=== PATIENT | male | born 1985 | race Caucasian/White ===

== ENCOUNTER 2024-10-13 17:34 | Inpatient (IN) | payer BC ==
[~2024-10-13] VITALS: Ht 172.7 cm; Wt 104.3 kg
[2024-10-13 18:36] LABS: BASOPHILS % 0.7 % (0.0-2.0); DIFFERENTIAL COMMENT 0; EOSINOPHILS % 4.4 % (0.0-5.0); HEMATOCRIT. 38.7 % (42.0-52.0); HEMOGLOBIN. 13.2 g/dL (14.0-18.0); LYMPHOCYTES % 26.9 % (20.0-50.0); MEAN CORPUSCULAR HEMOGLOBIN 27.2 pg (28.0-32.0); MEAN CORPUSCULAR HGB CONC 34.1 g/dL (31.0-37.0); MEAN CORPUSCULAR VOLUME 79.7 fL (80.0-94.0); MEAN PLATELET VOLUME 10.1 fl (7.4-10.4); MONOCYTES % 8.7 % (2.0-8.0); NEUTROPHILS % 59.3 % (40.0-76.0); PLATELET 241 x1000/uL (130-400); RED BLOOD CELL COUNT 4.86 mill/uL (4.7-6.1); RED CELL DISTRIBUTION WIDTH 14.4 % (11.6-14.6); WHITE BLOOD COUNT 7.2 x1000/uL (4.5-11.0)
[2024-10-13 18:43] LABS: CHLORIDE 105 mEq/L (98-107); POTASSIUM 3.6 mEq/L (3.5-5.1); SODIUM 139 mEq/L (136-145)
[2024-10-13 18:44] LABS: CARBON DIOXIDE 27 mEq/L (21-32)
[2024-10-13 18:45] LABS: CALCIUM 9.8 mg/dL (8.7-10.4)
[2024-10-13 18:49] LABS: D-DIMER < 0.19 mg/L FEU (<0.50); PARTIAL THROMBOPLASTIN TIME 27.3 sec (23.4-31.0); PROTHROMBIN TIME 11.2 sec (9.6-11.0)
[2024-10-13 18:50] LABS: CREATININE 1.1 mg/dL (0.6-1.3); GLUCOSE 81 mg/dL (70-105); UREA NITROGEN BLOOD 13 mg/dL (9-23)
[2024-10-13 18:51] LABS: TROPONIN I HIGH SENSITIVITY 18 ng/L (3.0-53)
[2024-10-13] MEDS ORDERED: AMIODARONE HCL 900 MG in DEXT 5% WATER 500 ML IV ONE (19:15)
[2024-10-13] MEDS: AMIODARONE HCL 900 MG in DEXT 5% WATER 482 ML IV NR (20:16)
[2024-10-13] MEDS ORDERED: CLONIDINE 0.1MG TABLET PO PRN (22:00)
[2024-10-13] MEDS ORDERED: ACETAMINOPHEN 325MG TABLET PO PRN ×2 (22:00)
[2024-10-13] MEDS ORDERED: IPRATROPIUM/ALBUTEROL 0.5-3(2.5)MG/3ML NEB HHN PRN (22:00)
[2024-10-13] MEDS ORDERED: ONDANSETRON HCL 4MG/2ML INJ IV PRN (22:00)
[2024-10-13] MEDS ORDERED: DOCUSATE SODIUM 100MG CAPSULE PO PRN (22:00)
[2024-10-14] MEDS ORDERED: IPRATROPIUM/ALBUTEROL 0.5-3(2.5)MG/3ML NEB HHN PRN (07:00)
[2024-10-14 09:04] LABS: BG BASE EXCESS 1.6 mmol/L (-2.0-3.0); BG CARBOXYHEMOGLOBIN 0.6 % (0.5-1.5); BG DEOXYHEMOGLOBIN 2.3 % (0.0-5.0); BG HCO3 ACT 26.7 mmol/L (21.0-28.0); BG METHEMOGLOBIN 0.3 % (0.5-1.5); BG OXYGEN SATURATION 97.7 % (94.0-98.0); BG OXYHEMOGLOBIN 96.8 % (94.0-98.0); BG PCO2 43.7 mmHg (35.0-48.0); BG PH 7.404 (7.350-7.450); BG PO2 97.1 mmHg (83.0-108.0); BG SAMPLE SITE RIGHT BRACHIAL; BG TOTAL HEMOGLOBIN 14.8 g/dL (13.5-17.5); BG VENT MODE ROOM AIR
[2024-10-14 10:50] LABS: BASOPHILS % 0.8 % (0.0-2.0); EOSINOPHILS % 6.3 % (0.0-5.0); HEMATOCRIT. 41.2 % (42.0-52.0); HEMOGLOBIN. 13.4 g/dL (14.0-18.0); LYMPHOCYTES % 23.2 % (20.0-50.0); MEAN CORPUSCULAR HEMOGLOBIN 26.5 pg (28.0-32.0); MEAN CORPUSCULAR HGB CONC 32.4 g/dL (31.0-37.0); MEAN CORPUSCULAR VOLUME 81.7 fL (80.0-94.0); MEAN PLATELET VOLUME 9.8 fl (7.4-10.4); MONOCYTES % 6.7 % (2.0-8.0); PLATELET 230 x1000/uL (130-400); RED BLOOD CELL COUNT 5.05 mill/uL (4.7-6.1); RED CELL DISTRIBUTION WIDTH 14.4 % (11.6-14.6); WHITE BLOOD COUNT 4.9 x1000/uL (4.5-11.0)
[2024-10-14 10:53] LABS: CHLORIDE 105 mEq/L (98-107); POTASSIUM 3.9 mEq/L (3.5-5.1); SODIUM 138 mEq/L (136-145)
[2024-10-14 10:54] LABS: CALCIUM 9.6 mg/dL (8.7-10.4); CARBON DIOXIDE 27 mEq/L (21-32)
[2024-10-14 10:59] LABS: GLUCOSE 91 mg/dL (70-105); UREA NITROGEN BLOOD 12 mg/dL (9-23)
[2024-10-14 11:00] LABS: TROPONIN I HIGH SENSITIVITY 13 ng/L (3.0-53)
[2024-10-14] MEDS: AMIODARONE 200MG TABLET PO SCH (11:18)
[2024-10-14 14:19] VITALS: BP 133/88; PULSE 91; RESP 17; TEMP 36.7516
[2024-10-14] MEDS ORDERED: LOSA-413 PO (14:32)
[2024-10-14] MEDS ORDERED: AMPH30CA PO (14:32)
[2024-10-14] MEDS ORDERED: DESV100T PO (14:32)
[2024-10-14] MEDS ORDERED: TIRZ15PE (14:37)
[2024-10-14 16:00] VITALS: BP 134/85; PULSE 85; RESP 17; TEMP 36.72516; O2SAT 96
[2024-10-14 17:11] LABS: CHLORIDE 105 mEq/L (98-107); POTASSIUM 3.7 mEq/L (3.5-5.1); SODIUM 140 mEq/L (136-145)
[2024-10-14 17:12] LABS: CALCIUM 9.6 mg/dL (8.7-10.4); CARBON DIOXIDE 27 mEq/L (21-32)
[2024-10-14 17:17] LABS: CREATININE 0.9 mg/dL (0.6-1.3); GLUCOSE 72 mg/dL (70-105); UREA NITROGEN BLOOD 13 mg/dL (9-23)
[2024-10-14 20:02] VITALS: BP 135/85; PULSE 89; RESP 15; TEMP 36.44736; O2SAT 96
[2024-10-14 20:20] LABS: *AMPHETAMINES SCREEN URINE PRESUMPTIVE POSITIVE (NEGATIVE); *BARBITURATES SCREEN URINE NEGATIVE (NEGATIVE); *BENZODIAZEPINES SCREEN URINE PRESUMPTIVE POSITIVE (NEGATIVE); *COCAINE SCREEN URINE NEGATIVE (NEGATIVE); METHADONE URINE SCREEN NEGATIVE (NEGATIVE); OPIATES URINE SCREEN NEGATIVE (NEGATIVE); PHENCYCLIDINE URINE SCREEN NEGATIVE (NEGATIVE)
[2024-10-14 20:21] LABS: CANNABINOID URINE SCREEN NEGATIVE (NEGATIVE); ECSTASY MDMA SCREEN URINE NEGATIVE (NEGATIVE)
[2024-10-15 00:02] VITALS: BP 117/78; PULSE 74; RESP 19; TEMP 36.16956; O2SAT 99
[2024-10-15 04:02] VITALS: BP 125/73; PULSE 82; RESP 18; TEMP 36.33624; O2SAT 99
[2024-10-15 07:51] LABS: HEPATITIS B SURFACE ANTIGEN NEGATIVE (Negative)
[2024-10-15 08:00] VITALS: BP 118/84; PULSE 85; RESP 20; TEMP 36.6696; O2SAT 98
[2024-10-15 08:12] LABS: HEPATITIS C AB NON REACTIVE (Neg) (Negative)
[2024-10-15 12:00] VITALS: BP 135/79; PULSE 88; RESP 20; TEMP 36.6696; O2SAT 97
[2024-10-15 16:00] VITALS: BP 134/82; PULSE 88; RESP 24; TEMP 36.9474; O2SAT 97
[2024-10-15] MEDS: LOSARTAN 50 MG TABLET PO SCH (17:18)
[2024-10-15] MEDS: GLYCOPYRROLATE 1MG TABLET PO SCH (17:18)
[2024-10-15 20:00] VITALS: BP 134/80; PULSE 88; RESP 18; TEMP 36.78072; O2SAT 97
[2024-10-16] VITALS: BP 134/61; PULSE 87; RESP 20; O2SAT 98
[2024-10-16 04:00] VITALS: BP 128/76; RESP 17; TEMP 36.44736; O2SAT 98
[2024-10-16] MEDS ORDERED: AMI2 PO ×2 (04:40)
[2024-10-16 06:47] VITALS: BP 130/72; PULSE 75; TEMP 98.6; O2SAT 98
[2024-10-16 08:00] VITALS: BP 120/77; PULSE 98; RESP 20; TEMP 36.55848; O2SAT 94
[2024-10-16] MEDS: DESVENLAFAXINE 100 MG PO SCH (08:56)
[2024-10-16] MEDS: DEXTROAMP AMPHET 30 MG PO SCH (08:57)
[2024-10-16] MEDS ORDERED: AMIO100T4 MT (09:35)
== END 2024-10-16 12:48 | disposition home or self-care (01) | DRG 308 ==
LOC: ER 19:37 → MICUSO 20:22 → EDBD 20:22 → EDBEDREQSVC 20:25 → EDBEDREQ 20:25 → EDBEDREQSVC 10-14 11:44 → 5WST 10-14 13:18 → 3WST 10-14 13:42
PROVIDERS: ADMIT Family Medicine Adult Medicine; ATTEND Family Medicine Adult Medicine
DX: I47.20 Ventricular tachycardia, unspecified (principal); J96.01 Acute respiratory failure with hypoxia; I10 Essential (primary) hypertension; E66.9 Obesity, unspecified; F32.A Depression, unspecified; Z68.35 Body mass index [BMI] 35.0-35.9, adult; F90.9 Attention-deficit hyperactivity disorder, unspecified type; Z79.899 Other long term (current) drug therapy
CPT/HCPCS: 36415; 36600; 71045; 73562; 80048; 80305; 82375; 82805; 83735; 83880; 84443; 84484; 85025; 85379; 86705; 87340; 93005; 93306; 99291; J0282; J7060